=== PATIENT | female | born 1960 | race Caucasian/White ===

== ENCOUNTER 2018-07-22 20:35 | Emergency (ER) | payer MEDICAID, OTHER ==
[2018-07-22 20:49] VITALS: BP 158/69
[2018-07-22] MEDS ORDERED: Albuterol/Ipratropium 3.0-0.5 MG/3 ML Neb Soln NEB ONE (21:03)
--- NOTE | 2018-07-22 21:05 | EDM.PDOC ---
ED HPI GENERAL MEDICAL PROBLEM - General Chief Complaint: Respiratory Problem Stated Complaint: TROUBLE BREATHING Time Seen by Provider: 07/22/18 21:00 Source of Information: Reports: Patient, Family, RN Notes Reviewed History Limitations: Reports: No Limitations - History of Present Illness INITIAL COMMENTS - FREE TEXT/NARRATIVE: 58-year-old female presents to the emergency department day complaint of shortness of breath, she states she's been short of breath for about a week it is progressively getting worse she is wheezing does cough but does not produce any sputum no chest pain no nausea vomiting she is sweaty - Related Data Allergies Allergy/AdvReac Type Severity Reaction Status Date / Time No Known Allergies Allergy Verified 07/22/18 20:40 Home Meds: Home Meds Amitriptyline [Elavil] 50 mg PO BEDTIME 06/15/13 [History] Ca Cmb No.1/Vit D3/B-6/FA/B12 [Vitamin D3 1,000 Unit] 2 each PO DAILY 06/15/13 [ History] Citalopram [Citalopram HBr] 1 tab PO DAILY 06/15/13 [History] Ibuprofen 800 mg PO TID 06/15/13 [History] Omeprazole 20 mg PO DAILY 07/22/18 [History] Past Medical History Gastrointestinal History: Reports: Diverticulosis, GERD 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: Psychiatric History: Reports: Anxiety, Depression, Panic Attack - Infectious Disease History Infectious Disease History: Reports: Chicken Pox, Mumps - Past Surgical History GI Surgical History: Reports: Colonoscopy Musculoskeletal Surgical History: Reports: Hip Replacement Social & Family History - Tobacco Use Smoking Status *Q: Current Every Day Smoker Years of Tobacco use: 40 Packs/Tins Daily: 1 - Caffeine Use Caffeine Use: Reports: Coffee - Recreational Drug Use Recreational Drug Use: Yes ED ROS GENERAL - Review of Systems Review Of Systems: See Below Constitutional: Reports: Fever, Chills, Diaphoresis HEENT: Reports: No Symptoms Respiratory: Reports: Shortness of Breath, Wheezing, Cough, Sputum Cardiovascular: Reports: Dyspnea on Exertion GI/Abdominal: Reports: No Symptoms : Reports: No Symptoms Musculoskeletal: Reports: No Symptoms Skin: Reports: No Symptoms Neurological: Reports: No Symptoms ED EXAM, GENERAL - Physical Exam Exam: See Below Exam Limited By: No Limitations General Appearance: Alert, WD/WN, No Apparent Distress Head: Atraumatic, Normocephalic Neck: Normal Inspection, Supple, Non-Tender, Full Range of Motion Respiratory/Chest: No Respiratory Distress, Chest Non-Tender, Decreased Breath Sounds, Wheezing Cardiovascular: Regular Rate, Rhythm, No Murmur GI/Abdominal: Soft, Non-Tender Course - Vital Signs Last Recorded V/S: Last Vital Signs Temp 96.4 F 07/22/18 20:49 Pulse 88 07/22/18 20:50 Resp 17 07/22/18 20:50 BP 158/69 H 07/22/18 20:49 Pulse Ox 93 L 07/22/18 20:50 - Orders/Labs/Meds Orders: Active Orders 24 hr Category Date Time Status Cardiac Monitoring [RC] .As Directed Care 07/22/18 21:02 Active RT Aerosol Therapy [RC] ASDIRECTED Care 07/22/18 21:03 Active Labs: Laboratory Tests 07/22/18 07/22/18 07/22/18 Range/Units 21:14 21:14 21:14 WBC 6.1 (4.5-11.0) K/uL RBC 4.05 (3.30-5.50) M/uL Hgb 12.0 (12.0-15.0) g/dL Hct 35.5 L (36.0-48.0) % MCV 88 (80-98) fL MCH 30 (27-31) pg MCHC 34 (32-36) % Plt Count 257 (150-400) K/uL Neut % (Auto) 77 H (36-66) % Lymph % (Auto) 12 L (24-44) % [place] % (Auto) 8 H (2-6) % Eos % (Auto) 2 (2-4) % Baso % (Auto) 1 (0-1) % Sodium 134 L (140-148) mmol/L Potassium 3.7 (3.6-5.2) mmol/L Chloride 99 L (100-108) mmol/L Carbon Dioxide 22 (21-32) mmol/L Anion Gap 16.7 H (5.0-14.0) mmol/L BUN 15 (7-18) mg/dL Creatinine 1.1 H D (0.6-1.0) mg/dL Est Cr Clr Drug Dosing 54.87 mL/min Estimated GFR (MDRD) 51 L (>60) Glucose 126 H (74-106) mg/dL Lactic Acid 1.0 (0.4-2.0) mmol/L Calcium 8.8 (8.5-10.1) mg/dL Troponin I 0.047 (0.000-0.056) ng/mL Meds: Medications Discontinued Medications Generic Name Dose Route Start Last Admin Trade Name Sonja PRN Reason Stop Dose Admin Albuterol/Ipratropium 3 ml 07/22/18 21:03 07/22/18 21:08 Duoneb 3.0-0.5 Mg/3 Ml NEB 07/22/18 21:04 3 ml ONETIME ONE Administration Departure - Departure Time of Disposition: 22:08 Disposition: Home, Self-Care 01 Condition: Fair Clinical Impression: CAP (community acquired pneumonia) Qualifiers: Laterality: right Lung location: upper lobe of lung Qualified Code(s): J18.1 - Lobar pneumonia, unspecified organism - Discharge Information Referrals: PCP,None [Primary Care Provider] - Forms: ED Department Discharge Additional Instructions: Take full course of antibiotics, take full course of steroids, use your albuterol inhaler as needed, please follow-up with your primary care provider in the next 5-7 days for reevaluation, call return to the emergency department worsening of symptoms - My Orders Last 24 Hours: My Active Orders 07/22/18 21:02 Cardiac Monitoring [RC] .As Directed 07/22/18 21:03 RT Aerosol Therapy [RC] ASDIRECTED - Assessment/Plan Last 24 Hours: My Active Orders 07/22/18 21:02 Cardiac Monitoring [RC] .As Directed 07/22/18 21:03 RT Aerosol Therapy [RC] ASDIRECTED Plan: Assessment Acuity = acute Site and laterality = community-acquired pneumonia right upper lobe Etiology = suspect bacterial cause Manifestations = cough Location of injury = Home Lab values = CBC unremarkable, creatinine elevated 1.1 consistent chronic renal failure stage GIII a lactic acid was normal troponin was normal chest x-ray shows probable pneumonia right upper lobe also there is a nodule left lower lobe patient describes as not new no old films or available Plan I did review lab work chest x-ray results with her plan is to place her on doxycycline 100 mg by mouth twice a day 10 days, followed by prednisone 20 mg once a day for 5 days with an albuterol inhaler follow-up with primary care 5-7 days for reevaluation This note was dictated using VR1 voice recognition software please call with any questions on syntax or grammar.
--- NOTE | 2018-07-22 21:55 | CRLCR ---
INDICATION: SOB HISTORY: Shortness of breath. COMPARISON: None. TECHNIQUE: Chest, 2 views. FINDINGS: Heart size and pulmonary vasculature are within normal limits. Linear type opacities are present bilaterally, most confluent in the right upper lobe. These are also present in the left upper lobe. There is an indeterminate, 8 mm nodule in the left lower lobe. Central airway is normal. Osseous structures are intact. Lateral/posterior costophrenic sulci are sharp. IMPRESSION: 1. Linear type opacities in the upper lobes, which may reflect scarring. Pneumonia is not excluded. 2. Indeterminate nodule in the left lower lobe. Comparison with any remote exams is suggested to evaluate for chronicity. If none are available, a nonemergent chest CT is suggested to further assess. Dictated by Vickey Phillips MD @ 07/22/2018 9:54:22 PM Dictated by: Vickey Phillips MD @ 07/22/2018 21:54:29 (Electronically Signed)
== END 2018-07-22 22:22 | disposition home or self-care (01) ==
LOC: JP.ED 20:35
DX: J18.1 Lobar pneumonia, unspecified organism (principal); F17.210 Nicotine dependence, cigarettes, uncomplicated; Z79.899 Other long term (current) drug therapy
CPT/HCPCS: 36415; 71046; 80048; 83605; 84484; 85025; 94640; 99285-25; J7620-GY

== ENCOUNTER 2025-03-22 11:59 | Emergency (ER) | payer MEDICAID ==
[2025-03-22] MEDS ORDERED: Naloxone 0.4 MG/ML SDV IVPUSH PRN (14:17)
[2025-03-22] MEDS: Clindamycin in 0.9 % Sod Chlor 600 MG in Premix Bag 1 BAG IV ONE (15:33)
[2025-03-22] MEDS: Ketorolac 30 MG/ML SDV IVPUSH ONE (16:09)
[2025-03-22 16:13] VITALS: BP 151/89; PULSE 77
== END 2025-03-22 16:25 | disposition home or self-care (01) ==
LOC: JP.ED 11:59
DX: K04.7 Periapical abscess without sinus (principal); K02.9 Dental caries, unspecified; K21.9 Gastro-esophageal reflux disease without esophagitis; F17.200 Nicotine dependence, unspecified, uncomplicated; Z79.899 Other long term (current) drug therapy
CPT/HCPCS: 96365; 96375; 99282; J0737; J1885; J1171